=== PATIENT | female | born 1995 | race Two or more races ===

== ENCOUNTER 2021-11-09 14:39 | Emergency (ER) | payer OTHER ==
[~2021-11-09] VITALS: Ht 162.6 cm; Wt 102.1 kg
[2021-11-09] MEDS ORDERED: IPRATROPIUM BROM 0.5 MG/2.5ML INH SOL NEB ONE (21:00)
[2021-11-09] MEDS ORDERED: ALBUTEROL SULF 2.5 MG/0.5ML(0.5%) NEB SOLN NEB ONE (21:00)
[2021-11-09] MEDS ORDERED: DexAMETHasone 4 MG TAB PO ONE (21:15)
[2021-11-09 21:50] VITALS: BP 127/68
== END 2021-11-09 22:15 | disposition home or self-care (01) ==
LOC: EDBD 14:39 → ER 14:39
DX: J45.909 Unspecified asthma, uncomplicated (principal); F12.10 Cannabis abuse, uncomplicated; R55 Syncope and collapse
CPT/HCPCS: 81025; 94640; 99283; J7644; J8540